=== PATIENT | male | born 1995 | race Caucasian/White ===

== ENCOUNTER 2016-05-07 21:57 | Emergency (ER) | payer BC ==
[2016-05-07] MEDS ORDERED: CEPHALEXIN 250 MG CAPSULE PO STA (22:28)
[2016-05-07] MEDS ORDERED: IBUPROFEN 600 MG TABLET PO STA (22:28)
[2016-05-07] MEDS ORDERED: HYDROcod/ACET 5/325 Prepack 6 PO ONE ×2 (22:28→22:31)
[2016-05-07] MEDS ORDERED: IBUPROFEN 600 MG TABLET PO ONE (22:31)
[2016-05-07] MEDS ORDERED: CEPHALEXIN 250 MG CAPSULE PO ONE (22:31)
== END 2016-05-07 22:55 | disposition home or self-care (01) ==
DX: K02.9 Dental caries, unspecified (principal); K08.89 Other specified disorders of teeth and supporting structures
CPT/HCPCS: 64400; 99283; A9270

== ENCOUNTER 2016-05-13 21:49 | Emergency (ER) | payer BC ==
[2016-05-13] MEDS ORDERED: BUPIVACAINE 0.5% PF 30 ML VIAL ONE (22:02)
== END 2016-05-13 22:31 | disposition home or self-care (01) ==
DX: K08.89 Other specified disorders of teeth and supporting structures (principal)

== ENCOUNTER 2016-06-20 12:43 | Emergency (ER) | payer BC ==
[2016-06-20] MEDS ORDERED: oxyCODONE 5 MG TABLET PO STA (13:04)
[2016-06-20] MEDS ORDERED: oxyCODONE 5 MG TABLET ONE (13:05)
== END 2016-06-20 13:10 | disposition home or self-care (01) ==
DX: M27.3 Alveolitis of jaws (principal); Z98.818 Other dental procedure status; R03.0 Elevated blood-pressure reading, without diagnosis of hypertension
CPT/HCPCS: 99283; A9270

== ENCOUNTER 2017-03-19 00:31 | Emergency (ER) | payer BC ==
[2017-03-19 00:38] VITALS: BP 114/92
[2017-03-19] MEDS ORDERED: AMOXICILLIN 250 MG CAPSULE PO STA (00:56)
[2017-03-19] MEDS ORDERED: DEXAMETHASONE 10 MG/ML VIAL PO STA (00:56)
[2017-03-19] MEDS ORDERED: HYDROcod/ACET 5/325 Prepack 6 PO STA (00:57)
--- NOTE | 2017-03-19 01:05 | ED Physician Documentation ---
PD HPI HEENT - Stated complaint Stated Complaint: TOOTH PAIN - Chief complaint Chief Complaint: Heent - History obtained from History obtained from: Patient - History of Present Illness Timing - onset: How many months ago (1) Timing - duration: Months (1) Timing - details: Gradual onset, Still present Location: Tooth Improves: Medication Worsens: Swalllowing, Temperatures, Everything Associated symptoms: Congestion, Headache, Cough. No: Fever Similar symptoms before: Diagnosis (dry socket) Recently seen: Not recently seen - Additional information Additional information: 22-year-old male who had his wisdom teeth removed about 9 months ago has developed some pain in his tooth that is right in front of his wisdom tooth on the right lower side and he has a broken tooth there. He has developed sensitivity to heat and cold and the pain is mounted to where he is very uncomfortable.In addition he has had cough and congestion and has a headache on the right side of his face including pain in the right ear. Review of Systems Constitutional: denies: Fever, Chills Eyes: denies: Decreased vision Ears: reports: Ear pain Nose: reports: Congestion Throat: reports: Dental pain / toothache Respiratory: reports: Cough GI: denies: Vomiting Skin: denies: Rash PD PAST MEDICAL HISTORY - Past Medical History Past Medical History: No - Past Surgical History Past Surgical History: Yes - Present Medications Home Medications: Ambulatory Orders Medication Instructions Recorded Confirmed Amoxicillin 875 mg PO BID #20 tablet 03/19/17 - Allergies Allergies/Adverse Reactions: Allergies Allergy/AdvReac Type Severity Reaction Status Date / Time No Known Drug Allergies Allergy Verified 03/19/17 00:38 - Social History Does the pt smoke?: No Smoking Status: Never smoker Does the pt drink ETOH?: No Does the pt have substance abuse?: No - Immunizations Immunizations are current?: Yes - POLST Patient has POLST: No PD ED PE NORMAL - Vitals Vital signs reviewed: Yes (hypertensive ) - General General: Alert and oriented X 3, Well developed/nourished, Other (22 y/o male appears to be in pain with 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 ) - HEENT HEENT: Atraumatic, PERRL, EOMI, Other (The right TM is inflammed with indistinct landmarks. The left is clear the mucous membranes are dry and #31 is broken on the buccal posterior aspect and is tender and reproduces the symptoms the patient is experiencing .) - Neck Neck: Supple, no meningeal sign, No bony TTP - Cardiac Cardiac: RRR, No murmur - Respiratory Respiratory: No respiratory distress, Clear bilaterally - Back Back: No CVA TTP, No spinal TTP - Derm Derm: Normal color, Warm and dry, No rash - Extremities Extremities: No deformity, No edema - Neuro Neuro: No motor deficit, No sensory deficit Eye Opening: Spontaneous Motor: Obeys Commands Verbal: Oriented GCS Score: 15 - Psych Psych: Other (mood is helpless and the affect is flat. ) Results - Vitals Vitals: Vital Signs - 24 hr 03/19/17 00:35 Temperature 36.3 C L Heart Rate 83 Respiratory 18 Rate Blood Pressure 114/92 H O2 Saturation 100 Oxygen O2 Source Room air PD MEDICAL DECISION MAKING - ED course Complexity details: considered differential, d/w patient ED course: 22-year-old male appears to be in pain and uncomfortable. He has a broken right lower molar that is extremely tender. In addition he has right otitis media. Here in the emergency permit is administered dexamethasone 10 mg orally amoxicillin 500 mg and CAVIT is a placed over the broken tooth. Departure - Departure Disposition: 01 Home, Self Care Clinical Impression: Pain, dental Otitis media Qualifiers: Otitis media type: suppurative Chronicity: acute Laterality: right Recurrence: not specified as recurrent Spontaneous tympanic membrane rupture: without spontaneous rupture Qualified Code(s): H66.001 - Acute suppurative otitis media without spontaneous rupture of ear drum, right ear Condition: Stable Instructions: ED Otitis Media Acute Adult, ED Tooth Pain Follow-Up: Yanely Nelson PA-C [Primary Care Provider] - Prescriptions: Amoxicillin 875 mg PO BID #20 tablet
[2017-03-19] MEDS ORDERED: CHERRY SYRUP 10 ML UDC PO ONE (01:08)
== END 2017-03-19 01:23 | disposition home or self-care (01) ==
LOC: ED 00:31
DX: K08.89 Other specified disorders of teeth and supporting structures (principal); H66.001 Acute suppurative otitis media without spontaneous rupture of ear drum, right ear; Z98.890 Other specified postprocedural states
CPT/HCPCS: 99283; A9270

== ENCOUNTER 2018-03-06 01:21 | Emergency (ER) | payer OTHER, BC ==
[2018-03-06] MEDS ORDERED: IBUPROFEN 400 MG TABLET PO STA (02:28)
[2018-03-06] MEDS ORDERED: LIDOCAINE VISCOUS 2% 15 ML UDC MM STA (02:28)
[2018-03-06] MEDS ORDERED: ACETAMINOPHEN 325 MG TABLET PO STA (02:28)
[2018-03-06] MEDS ORDERED: AMOXICILLIN 250 MG CAPSULE PO STA (02:28)
--- NOTE | 2018-03-06 02:31 | ED Physician Documentation ---
History of Present Illness - Stated complaint Stated Complaint: DENTAL PAIN - Chief complaint Chief Complaint: Heent - Additonal information Additional information: hx from pt 23 male to ED with right lower 2nd molar pain thinks it is infected no fever no injury no dental insurance Review of Systems Constitutional: denies: Fever Throat: reports: Dental pain / toothache Immunocompromised: denies: Immunocompromised PD PAST MEDICAL HISTORY - Past Medical History Past Medical History: No - Past Surgical History Past Surgical History: Yes - Present Medications Home Medications: Ambulatory Orders Medication Instructions Recorded Confirmed Amoxicillin 500 mg PO Q8HR #30 capsule 03/06/18 - Allergies Allergies/Adverse Reactions: Allergies Allergy/AdvReac Type Severity Reaction Status Date / Time No Known Drug Allergies Allergy Verified 03/06/18 01:31 - Social History Does the pt smoke?: Yes Smoking Status: Current every day smoker Does the pt drink ETOH?: Yes Does the pt have substance abuse?: No Substance Use and Type: Marijuana - Immunizations Immunizations are current?: Yes - POLST Patient has POLST: No PD ED PE NORMAL - Vitals Vital signs reviewed: Yes - HEENT HEENT: Other (no sig decay, no visible abscess, R lower 2nd molar TTP, no trisumus, no submandibular or neck swelling) - Cardiac Cardiac: RRR, No murmur - Respiratory Respiratory: No respiratory distress, Clear bilaterally Results - Vitals Vitals: Vital Signs - 24 hr 03/06/18 01:29 Temperature 36.5 C Heart Rate 96 Respiratory 16 Rate Blood Pressure 105/67 O2 Saturation 100 Oxygen O2 Source Room air Departure - Departure Disposition: 01 Home, Self Care Clinical Impression: Dental infection Condition: Good Instructions: ED Abscess Dental Prescriptions: Amoxicillin 500 mg PO Q8HR #30 capsule Comments: Motrin tylenol and anbesol as needed for the pain Try [facility]. Return if worse.
[2018-03-06 02:40] VITALS: BP 113/74
== END 2018-03-06 02:40 | disposition home or self-care (01) ==
LOC: ED 01:21
DX: K04.7 Periapical abscess without sinus (principal); F17.200 Nicotine dependence, unspecified, uncomplicated
CPT/HCPCS: 99283; A9270

== ENCOUNTER 2019-01-06 22:01 | Emergency (ER) | payer BC, OTHER ==
[2019-01-06] MEDS ORDERED: KETOROLAC 60 MG/2 ML VIAL IM STA (22:37)
--- NOTE | 2019-01-06 22:38 | ED Physician Documentation ---
History of Present Illness - Stated complaint Stated Complaint: S[place]OSH [place] - Chief complaint Chief Complaint: General - History obtained from History obtained from: Patient - History of Present Illness Pain level max: 6 Pain level now: 5 - Additonal information Additional information: 23-year-old male states that he has had a right-sided chest pain for the past year. This is been ongoing intermittently, states worse over the past several days. Has not sought any care for this. Has not taken anything for this. No fevers. No coughing. Worse with palpation and breathing. No recent travel. No history of blood clots. No recent surgery. Better with rest Review of Systems Constitutional: denies: Fever, Chills Nose: denies: Rhinorrhea / runny nose, Congestion Cardiac: denies: Palpitations Respiratory: denies: Dyspnea, Cough, Hemoptysis, Wheezing GI: denies: Nausea, Vomiting Skin: denies: Rash PD PAST MEDICAL HISTORY - Past Medical History Past Medical History: Yes Respiratory: Asthma - Past Surgical History Past Surgical History: Yes - Present Medications Home Medications: Ambulatory Orders Medication Instructions Recorded Confirmed Albuterol Sulfate [Proair Hfa 2 puffs PRN 01/06/19 Inhaler] Meloxicam [Mobic] 15 mg PO DAILY PRN #20 tablet 01/06/19 - Allergies Allergies/Adverse Reactions: Allergies Allergy/AdvReac Type Severity Reaction Status Date / Time No Known Drug Allergies Allergy Verified 03/06/18 01:31 - Social History Does the pt smoke?: Yes Smoking Status: Current every day smoker Does the pt drink ETOH?: Yes Does the pt have substance abuse?: No - Immunizations Immunizations are current?: Yes - POLST Patient has POLST: No PD ED PE NORMAL - Vitals Vital signs reviewed: Yes - General General: Alert and oriented X 3, No acute distress, Well developed/nourished - HEENT HEENT: Moist mucous membranes - Neck Neck: Supple, no meningeal sign - Cardiac Cardiac: RRR, No murmur, Strong equal pulses - Respiratory Respiratory: No respiratory distress, Clear bilaterally - Derm Derm: Warm and dry - Extremities Extremities: No edema, No calf tenderness / cord - Neuro Neuro: Alert and oriented X 3 - Psych Psych: Normal mood, Normal affect - Free text exam Free text exam: Tender to palpation across the anterior chest wall. Reproduces his pain. This is mostly on the right third and fourth costochondral junctions. No swelling. No skin changes. Results - Vitals Vitals: Vital Signs - 24 hr 01/06/19 01/06/19 22:13 23:48 Temperature 36.7 C Heart Rate 83 68 Respiratory 16 14 Rate Blood Pressure 132/85 H 103/61 O2 Saturation 99 100 Oxygen O2 Source Room air - EKG (time done) 2213 Rate: Rate (enter#) (78) Rhythm: NSR [place]: Normal Intervals: Normal NC QRS: Normal Ischemia: Normal ST segments Compare to prior EKG: Unchanged from prior EKG - Rads (name of study) Chest x-ray Radiology: Prelim report reviewed, EMP read contemporaneously, See rad report (No acute disease) PD MEDICAL DECISION MAKING - ED course Complexity details: reviewed results, re-evaluated patient, considered differential (No ST elevation [place], no aortic dissection, no PE, no tension pneumothorax, no aortic aneurysm), d/w patient ED course: 23-year-old male presents to the emergency department with what appears to be pleurisy versus costochondritis. Will place on NSAIDs. We will have him follow-up with his doctor for further care. No evidence of acute coronary syndrome, pneumothorax, pulmonary embolus. Patient counseled regarding signs and symptoms for which I believe and urgent re-evaluation would be necessary. Patient with good understanding of and agreement to plan and is comfortable going home at this time This document was made in part using voice recognition software. While efforts are made to proofread this document, sound alike and grammatical errors may occur. Departure - Departure Disposition: 01 Home, Self Care Clinical Impression: Costochondritis, acute, Pleurisy Condition: Good Instructions: ED Chest Pain Costochondritis, ED Chest Pain Pleurisy Follow-Up: Yanely Nelson PA-C [Primary Care Provider] - Within 1 week Prescriptions: Meloxicam [Mobic] 15 mg PO DAILY PRN #20 tablet PRN Reason: pain Comments: Return if you worsen. Follow-up with your doctor for further care. This should improve over the next week or so. Discharge Date/Time: 01/06/19 23:50
--- NOTE | 2019-01-06 23:14 | XRAY Report ---
Reason: cough Procedure Date: 01/06/2019 Accession Number: [id number] / [id number] Procedure: XR - Chest 2 View X-Ray CPT Code: 73420 Final Report FULL RESULT: EXAM: CHEST RADIOGRAPHY EXAM DATE: 01/06/2019 10:50 PM. CLINICAL HISTORY: Cough and shortness of breath. Chest pain. COMPARISON: CHEST 2 VIEW PA/LAT 12/20/2017 3:48 PM. TECHNIQUE: 2 views. FINDINGS: Lungs/Pleura: No alveolar consolidation or pleural effusion seen. No pneumothorax. Mediastinum: Heart and mediastinal contours are unremarkable. Other: None. IMPRESSION: 1. No acute abnormality seen in the chest. [facility]
[2019-01-06 23:50] VITALS: BP 103/61
== END 2019-01-06 23:50 | disposition home or self-care (01) ==
LOC: ED 22:01
DX: M94.0 Chondrocostal junction syndrome [Tietze] (principal); R09.1 Pleurisy; F17.200 Nicotine dependence, unspecified, uncomplicated
CPT/HCPCS: 71046; 93005; 99283; 99284

== ENCOUNTER 2020-01-08 08:00 | Outpatient (CLI) | payer BC ==
[2020-01-08 17:56] LABS: BASOPHILS % (AUTO) 1.3 %; EOSINOPHILS % (AUTO) 13.7 %; HGB - HEMOGLOBIN 14.5 g/dL (14.0-18.0); LYMPHOCYTES % (AUTO) 28.1 %; MEAN CORPUSCULAR HEMOGLOBIN 29.9 pg (27.0-31.0); MEAN CORPUSCULAR HGB CONC 33.4 g/dL (32.0-36.0); MEAN CORPUSCULAR VOLUME 89.5 fL (80.0-94.0); NEUTROPHILS % (AUTO) 50.5 %; PLT - PLATELET COUNT 298 10^3/uL (130-450); RED BLOOD COUNT 4.85 10^6/uL (4.70-6.10); RED CELL DISTRIBUTION WIDTH 12.5 % (12.0-15.0); WHITE BLOOD COUNT 8.6 x10^3/uL (4.8-10.8)
[2020-01-08 18:11] LABS: ABNORMAL LYMPHS % (MANUAL) 0 %; ALBUMIN 4.6 g/dL (3.2-5.5); ALBUMIN/GLOBULIN RATIO 1.6 (1.0-2.2); ALKALINE PHOSPHATASE 61 IU/L (42-121); ALT ALANINE AMINOTRANSFERASE 16 IU/L (10-60); AST ASPARTATE AMINOTRANSFERASE 17 IU/L (10-42); BILIRUBIN,TOTAL 0.8 mg/dL (0.2-1.0); BUN - BLOOD UREA NITROGEN 5 mg/dL (6-20); CALCIUM 9.4 mg/dL (8.5-10.3); CARBON DIOXIDE - CO2 31 mmol/L (21-32); CHLORIDE 103 mmol/L (101-111); CREATININE 0.8 mg/dL (0.6-1.2); GLUCOSE 61 mg/dL (70-100); SODIUM 141 mmol/L (135-145); TOTAL PROTEIN 7.4 g/dL (6.7-8.2)
[2020-01-08 18:46] LABS: CRP - C-REACTIVE PROTEIN < 1.0 mg/dL (0-1.0)
[2020-01-08 19:11] LABS: BAND NEUTROPHILS % (MANUAL) 2 %; BASOPHILS # (MANUAL) 0.1 10^3/uL (0-0.1); BASOPHILS % (MANUAL) 1 %; DIFFERENTIAL COMMENT MANUAL DIFFERENTIAL; EOSINOPHILS # (MANUAL) 1.2 10^3/uL (0-0.7); LYMPHOCYTES # (MANUAL) 3.1 10^3/uL (1.5-3.5); LYMPHOCYTES % (MANUAL) 35 %; MONOCYTES # (MANUAL) 0.3 10^3/uL (0.0-1.0); PLATELET ESTIMATE, MANUAL NORMAL (130-450,000) (NORMAL); PLATELET MORPHOLOGY NORMAL APPEARANCE (NORMAL); RBC MORPHOLOGY (MULTIPLE) NORMAL APPEARANCE (NORMAL)
== END 2020-01-08 23:59 | disposition home or self-care (01) ==
LOC: LAB.WCP 08:00
PROVIDERS: ATTEND Family Medicine
DX: R10.9 Unspecified abdominal pain (principal)
CPT/HCPCS: 36415; 80053; 85025; 85651; 86140